=== PATIENT | male | born 2000 | race Caucasian/White ===

== ENCOUNTER 2018-03-24 20:46 | Emergency (ER) | payer OTHER ==
[2018-03-24] MEDS: NORCO, ANEXSIA 5/325MG TABLET (HYDROcodone/ACETAMINOPHEN) PO (21:56)
== END 2018-03-24 22:26 | disposition home or self-care (01) ==
LOC: M ED 20:46
DX: S83.001A Unspecified subluxation of right patella, initial encounter (principal); M85.48 Solitary bone cyst, other site; X58.XXXA Exposure to other specified factors, initial encounter; Y92.830 Public park as the place of occurrence of the external cause
CPT/HCPCS: 73564